=== PATIENT | male | born 1955 | race Caucasian/White ===

== ENCOUNTER 2022-06-29 22:19 | Emergency (ER) | payer MEDICARE, OTHER ==
[2022-06-29] MEDS ORDERED: SUBLIMAZE 100 MCG/2 ML IV ONE (22:24)
[2022-06-29] MEDS ORDERED: TYLENOL 325 MG PO ONE (22:24)
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
[2022-06-29] MEDS ORDERED: TYLENOL 325 MG ONE (22:28)
[2022-06-29] MEDS ORDERED: SUBLIMAZE 100 MCG/2 ML ONE (22:28)
[2022-06-29 22:36] LABS: Hematocrit 38.4 % (42-50); Hemoglobin 12.9 g/dL (12.5-18.0); Mean Cell Volume 92.5 fL (78-100); Mean Corpuscular Hemoglobin 31.1 pg (26-32); Mean Corpuscular Hgb Concent. 33.6 g/dL (32-36); Mean Platelet Volume 10.5 fL (7.5-11.0); Platelet Count 270 x10^3/uL (150-450); Red Blood Count 4.15 x10^6/uL (4.1-5.6); Red Cell Distribution Width 12.8 % (11.5-14.0); White Blood Count 12.4 x10^3/uL (4.0-10.5)
[2022-06-29 22:51] LABS: ALBUMIN 4.5 g/dL (3.5-5.0); ALKALINE PHOSPHATASE 81 U/L (38-126); ANION GAP 15.6 MEQ/L (5-15); BLOOD UREA NITROGEN 24 mg/dL (9-20); CHLORIDE 107 mmol/L (98-107); Calcium 8.4 mg/dL (8.4-10.2); Carbon Dioxide 23 mmol/L (22-30); Creatinine 1 1.11 mg/dL (0.66-1.25); EST GLOMERULAR FILTRATION RATE > 60.0 ML/MIN; Glucose 135 mg/dL (74-106); Potassium 3.9 mmol/L (3.5-5.1); SGOT/AST 64 U/L (17-59); SGPT/ALT 33 U/L (0-50); SODIUM 142 mmol/L (137-145); Total Protein 7.7 g/dL (6.3-8.2)
[2022-06-30] MEDS ORDERED: PROTONIX 40 MG IV IV ONE ×2 (01:48→01:53)
[2022-06-30] MEDS ORDERED: Zofran 4 MG/2 ML VIAL IV ONE (01:49)
[2022-06-30] MEDS ORDERED: Zofran 4 MG/2 ML VIAL ONE (01:53)
[2022-06-30 03:13] VITALS: BP 186/107; PULSE 69; O2SAT 93
[2022-06-30] MEDS ORDERED: SUBLIMAZE 250 MCG/5 ML IV ONE (03:33)
[2022-06-30] MEDS ORDERED: SUBLIMAZE 100 MCG/2 ML ONE (03:37)
--- NOTE | 2022-06-30 08:45 | XRAY ---
Indication: Pain following fall. Comparison: None AP pelvis and 2 view left hip demonstrates moderately angulated left femur neck acute fracture. Elsewhere osteopenia and moderate lower lumbar degenerative changes. No other bony, articular, or soft tissue abnormalities.
--- NOTE | 2022-06-30 08:47 | XRAY ---
Indication: Thumb pain following fall. Comparison: None 2 View left hand demonstrates osteopenia, mild/moderate degenerative changes all IP/MCP joints, and advanced degenerative changes 1st metacarpal multangular articulation. No other bony, articular, or soft tissue abnormalities.
== END 2022-06-30 03:45 | disposition short-term general hospital (02) ==
LOC: ED 22:19
DX: S72.142A Displaced intertrochanteric fracture of left femur, initial encounter for closed fracture (principal); S01.81XA Laceration without foreign body of other part of head, initial encounter; W01.0XXA Fall on same level from slipping, tripping and stumbling without subsequent striking against object, initial encounter; M79.645 Pain in left finger(s); Z59.86 Financial insecurity; Z59.00 Homelessness unspecified
CPT/HCPCS: 12011; 36000; 36415; 73120; 73502; 80053; 85027; 96374; 96376; 99285; J2405; J3010; A9270-GY